=== PATIENT | male | born 1975 | race Two or more races ===

== ENCOUNTER 2017-09-13 12:45 | Emergency (ER) | payer SELFPAY ==
[~2017-09-13] VITALS: Ht 165.1 cm; Wt 85.0 kg
[2017-09-13] MEDS ORDERED: IBUPROFEN 200MG TABLET ONE (12:57)
[2017-09-13] MEDS ORDERED: IBUPROFEN 600MG TABLET PO ONE (13:00)
[2017-09-13] MEDS ORDERED: ONDANSETRON HCL 4MG/2ML VIAL IV STA (13:33)
[2017-09-13] MEDS ORDERED: MORPHINE SULFATE 4 MG/ML CPJ (NOT FOR IM USE) IV STA (13:33)
[2017-09-13] MEDS ORDERED: PIPERACILLIN SODIUM/TAZOBACTAM 4.5 G in DEXT 5% WATER 100 ML IV SCH (13:45)
[2017-09-13 17:01] VITALS: BP 107/73
[2017-09-13] MEDS ORDERED: IPRATROPIUM BROMIDE (0.02%) 0.5MG/2.5ML NEB ONE (17:52)
[2017-09-13] MEDS ORDERED: ALBUTEROL (0.5%) 2.5MG/0.5ML NEB HHN ONE (17:52)
== END 2017-09-13 17:17 | disposition short-term general hospital (02) ==
LOC: ER 12:45
DX: S62.627B Displaced fracture of middle phalanx of left little finger, initial encounter for open fracture (principal); S61.213A Laceration without foreign body of left middle finger without damage to nail, initial encounter; S61.215A Laceration without foreign body of left ring finger without damage to nail, initial encounter; W31.1XXA Contact with metalworking machines, initial encounter; Y93.89 Activity, other specified; Y92.89 Other specified places as the place of occurrence of the external cause; Y99.8 Other external cause status
CPT/HCPCS: 73130; 96365; 96366; 96375; 99285; J2270; J2405; J2543; J7611; J7060

== ENCOUNTER 2023-03-22 17:57 | Emergency (ER) | payer MEDICAID, OTHER ==
[~2023-03-22] VITALS: Ht 167.6 cm; Wt 91.0 kg
[2023-03-22 18:15] VITALS: O2SAT 98
[2023-03-22] MEDS ORDERED: ACETAMINOPHEN 500MG TABLET PO ONE (18:30)
[2023-03-22] MEDS ORDERED: ACET-2708 MT (20:03)
[2023-03-22 20:28] VITALS: BP 144/91; PULSE 83; RESP 15; TEMP 98.6
== END 2023-03-22 20:30 | disposition home or self-care (01) ==
LOC: ER 17:57
DX: S09.90XA Unspecified injury of head, initial encounter (principal); E11.9 Type 2 diabetes mellitus without complications; Y08.89XA Assault by other specified means, initial encounter; Y93.89 Activity, other specified; Y92.89 Other specified places as the place of occurrence of the external cause; Y99.8 Other external cause status
CPT/HCPCS: 99284